=== PATIENT | female | born 1995 | race Hispanic/Latino ===

== ENCOUNTER 2025-07-04 12:38 | Emergency (ER) | payer MEDICAID ==
[~2025-07-04] VITALS: Ht 157.5 cm; Wt 83.9 kg
--- NOTE | 2025-07-04 13:25 | ERN ---
ED Note History of Present Illness Stated Complaint: LT 3RD FINGER, FOREIGN BODY Chief Complaint: Finger Injury Time Seen by MD: 12:41 Time Seen by Midlevel: 12:42 Dictation: 29-year-old female coming in with complaints of a left 3rd digit pain. Along the nail bed. No drainage no fevers. Denies any trauma or ingrown nail. Allergies: Coded Allergies: No Known Allergies (Unverified Allergy, Unknown, 07/04/25) Past Medical History Past Medical History: No Pertinent History Surgical History: None LMP: May 25, 2025 : 3 Para: 2 Review of System Dictation Constitutional: Negative for fever,chills, and weight loss Eyes: Negative for injury, pain,redness, and discharge ENT: Negative for injury,pain or swelling Cardiovascular: Negative for chest pain, palpitations, and edema Respiratory: Negative for shortness of breath, cough, and wheezing, Abdomen/GI: Negative for abdominal pain, nausea, vomiting, diarrhea, and constipation Back: Negative for injury and pain : Negative for injury, bleeding and discharge MS/Extremity: Negative for injury and deformity, left 3rd digit pain Skin: Negative for rash, and discoloration Neuro: Negative for headache, weakness, numbness, tingling, and seizure Psych: Negative for suicide ideation, homicidal ideation, and hallucinations Review of Systems: was completed Initial Vital Sign VS Vital Signs Date Time Temp Pulse Resp B/P (MAP) Pulse Ox O2 Delivery O2 Flow Rate FiO2 07/04/25 12:40 98.4 71 16 136/88 100 Room Air 0 Physical Exam Dictation General: awake, alert, NAD Head/Face: Normocephalic, atraumatic Eyes: PERRL, EOMI, vision at baseline ENT: oral cavity clear, TMs clear, no signs of infection Neck: Trachea midline, supple, no nuchal rigidity Cardiovascular: RRR, normal S1/S2, No MRGs, no JVD Respiratory: CTAB, no respiratory distress, No rales or wheezes Abdomen: Soft, non-tender, non-distended, normal bowel sounds, no guarding or rebound. Skin: Warm, dry, normal turgor, no rash, mild redness to the nail bed of the 3rd left digit. Most likely consistent with parenchymal nail MS/Extremity: Pulses equal, no cyanosis, neurovascular intact, FROM Neuro: COAx4, GCS 15, strength 5/5, CN 2-12 intact, normal cerebellar exam, normal gait, Psych: Normal behavior, mood, and affect normal Results (Laboratory/Radiology) Labs Reviewed?: Yes ED Course ED Course Orders Procedure Category Date Status Time Acetaminophen 325 Tab PHA 07/04/25 Complete (Tylenol 325mg Tab 13:48 Lidocaine Hcl 1% 20ml PHA 07/04/25 Complete Vial (Lidocaine Hc 13:48 Current Medications Medications (Trade) Dose Ordered Sig/Laly Route PRN Reason Start Time Stop Time Status Last Admin Dose Admin Acetaminophen (TYLenol 325MG TAB) 650 mg ONCE STAT PO 07/04/25 13:48 07/04/25 13:49 DC Lidocaine HCl (Lidocaine HCl 1% 20ml Vial) ONCE STAT INJ 07/04/25 13:48 07/04/25 13:49 DC Vital Signs Date Time Temp Pulse Resp B/P (MAP) Pulse Ox O2 Delivery O2 Flow Rate FiO2 07/04/25 12:40 98.4 71 16 136/88 100 Room Air 0 Medical Decision Making MDM MDM: 29-year-old female coming in with complaints of a left 3rd digit pain. Along the nail bed. No drainage no fevers. Denies any trauma or ingrown nail. Differential diagnosis: Ingrown nail, paronychia Rationale: Tests considered and ordered secondary to shared decision making in clude: Previous outside records reviewed: Old ER visits. Risk of complication and/or morbidity or mortality of patient management: None Medications-Per medication reconciliation Need for hospitalization: Patient does not meet criteria for hospitalization. Need for emergency major/minor surgery: No There are no social concerns with this patient. Prescription drug management Prescriptions will include symptomatic care Patient's prior external medical records from other ER visits were reviewed by me as indicated. Prior testing and results from previous visits were reviewed. Prior tests were taken into account with medical decision making and resource utilization, independent historian/historians were used to obtain complete medical history. I independently interpreted the test that were performed, results were reviewed by me and considered findings on radiology if ordered. Medical management and examination interpretation discussions were had by me with other qualified healthcare professionals as indicated for the patient's care. Procedure Blade Size: 11 I & D Procedure: no betadine prep Progress Used 1% lidocaine to numb the area. It needle decompression. Very minimal discharge noted. DX & DISP Disposition: Discharge Departure Impression: Primary Impression: Paronychia of finger of left hand Condition: Stable Scripts Cephalexin Monohydrate (Keflex) 500 Mg Cap 500 MG PO BID for 5 Days, #28 CAP Prov: TANIA LEGGETT NP 07/04/25 Additional Instructions: You can use warm compresses to help with the drainage. Take antibiotics as prescribed. Return to the hospital for any worsening condition. Time of Disposition: 14:36 I have reviewed the case, and I agree with, Diagnosis and Plan TANIA LEGGETT NP Jul 04, 2025 13:25
[2025-07-04] MEDS: LIDOCAINE HCL 1% 20 ML VIAL INJ STA (14:33)
[2025-07-04] MEDS ORDERED: CEPH500B PO (14:36)
[2025-07-04 14:38] VITALS: BP 132/84; PULSE 71; RESP 16; TEMP 98.3; O2SAT 98
== END 2025-07-04 14:43 | disposition home or self-care (01) ==
LOC: EDH 12:38
DX: L03.012 Cellulitis of left finger (principal)
CPT/HCPCS: 10060; 99283